=== PATIENT | male | born 1930 | race American Indian/Alaskan Native ===

== ENCOUNTER 2021-08-21 10:48 | Emergency (ER) | payer MEDICARE ==
[2021-08-21 10:51] VITALS: BP 138/73
[2021-08-21 11:52] LABS: Basophils % (Auto) 0.3 % (0.0-1.8); Eosinophils # (Auto) 0.1 K/mm3 (0.0-0.4); Eosinophils % (Auto) 0.8 % (0.0-4.3); Hematocrit 38.9 % (35.5-45.6); Hemoglobin 13.1 gm/dl (11.8-15.2); Lymphocytes # (Auto) 1.2 K/mm3 (1.2-5.4); Lymphocytes % (Auto) 14.9 % (13.4-35.0); Mean Corpuscular HGB Conc 34 % (32-34); Mean Corpuscular Volume 88 fl (84-94); Monocytes # (Auto) 0.7 K/mm3 (0.0-0.8); Monocytes % (Auto) 8.6 % (0.0-7.3); Platelet Count 188 K/mm3 (140-440); Red Blood Count 4.44 M/mm3 (3.65-5.03); Red Cell Distribution Width 16.4 % (13.2-15.2)
--- NOTE | 2021-08-21 12:45 | Emergency Department Report ---
- General Chief complaint: Altered Mental Status Stated complaint: AMS Time Seen by Provider: 08/21/21 11:27 Source: EMS Mode of arrival: Stretcher Limitations: Altered Mental Status - History of Present Illness Initial comments: Patient is a 89-year-old F Russian male past medical history of end-stage renal disease who was brought in because of "unresponsiveness" after dialysis. Paramedics arrived patient was alert and oriented. His brother states he was less responsive than usual. Patient states he feels fine at this time. States he is unsure why he was brought to the hospital. Denies chest pain shortness of breath or any focal neurological deficits. - Related Data Allergies Allergy/AdvReac Type Severity Reaction Status Date / Time No Known Allergies Allergy Verified 08/21/21 10:51 ED Review of Systems ROS: Stated complaint: AMS Other details as noted in HPI Comment: All other systems reviewed and negative ED Physical Exam - General Limitations: Altered Mental Status General appearance: alert, in no apparent distress - Head Head exam: Present: atraumatic, normocephalic - Eye Eye exam: Present: normal appearance - ENT ENT exam: Present: mucous membranes moist - Neck Neck exam: Present: normal inspection - Respiratory Respiratory exam: Present: normal lung sounds bilaterally. Absent: respiratory distress, wheezes, rales, rhonchi - Cardiovascular Cardiovascular Exam: Present: regular rate, normal rhythm, normal heart sounds. Absent: systolic murmur, diastolic murmur, rubs, gallop - GI/Abdominal GI/Abdominal exam: Present: soft, normal bowel sounds. Absent: distended, t enderness, guarding, rebound - Rectal Rectal exam: Present: deferred - Extremities Exam Extremities exam: Present: normal inspection - Back Exam Back exam: Present: normal inspection - Neurological Exam Neurological exam: Present: alert, oriented X3 - Psychiatric Psychiatric exam: Present: normal affect, normal mood - Skin Skin exam: Present: warm, dry, intact, normal color. Absent: rash ED Course Vital Signs 08/21/21 10:49 Pulse Rate 88 Respiratory 18 Rate Blood Pressure 138/73 [Left] O2 Sat by Pulse 99 Oximetry ED Medical Decision Making - Lab Data Result diagrams: 08/21/21 11:35 08/21/21 11:35 EKG was performed prior to patient's arrival which showed a normal sinus rhythm with a rate of 89. Marlette normal intervals normal. Occasional PVCs. No ST segment elevations or depressions are present. - Medical Decision Making Patient is 89-year-old F Russian male who received dialysis and was less responsive than normal according to his brother. Patient is alert and oriented x3 at this time. Does have some short-term memory issues which is likely his baseline however he does not appear lethargic and released. Laboratory studies unremarkable. Vital signs stable. Patient stable for discharge. Critical care attestation.: If time is entered above; I have spent that time in minutes in the direct care of this critically ill patient, excluding procedure time. ED Disposition Clinical Impression: Weakness Disposition: 01 HOME / SELF CARE / HOMELESS Is pt being admited?: No Does the pt Need Aspirin: No Condition: Stable Instructions: Fatigue Time of Disposition: 12:45
== END 2021-08-21 13:32 | disposition home or self-care (01) ==
LOC: ED 10:48
DX: R53.1 Weakness (principal)
CPT/HCPCS: 36415; 80048; 85025; 99283